=== PATIENT | female | born 1935 | race Caucasian/White ===

== ENCOUNTER 2018-02-17 12:16 | Emergency (ER) | payer MEDICARE, OTHER ==
--- NOTE | 2018-02-17 12:43 | ER Document Report ---
ED Medical Screen (RME) - General Chief Complaint: Chest Pressure Stated Complaint: ABNORMAL EKG Time Seen by Provider: 02/17/18 12:40 Mode of Arrival: Ambulatory Information source: Patient Notes: 82-year-old female no previous medical history does not take any medications except for intermittent baby aspirin presents with palpitations. Patient denies any actual chest pain feels like there is intermittent earthquakes in her chest felt her heart was racing today went to primary care physician EKG was performed PVC noted patient sent in for evaluation I have greeted and performed a rapid initial assessment of this patient. A comprehensive ED assessment and evaluation of the patient, analysis of test results and completion of the medical decision making process will be conducted by additional ED providers. PHYSICAL EXAMINATION: GENERAL: Well-appearing, well-nourished and in no acute distress. HEAD: Atraumatic, normocephalic. EYES: Pupils equal round extraocular movements intact, conjunctiva are normal. ENT: Nares patent NECK: Normal range of motion LUNGS: No respiratory distress Musculoskeletal: Normal range of motion NEUROLOGICAL: Normal speech, normal gait. PSYCH: Normal mood, normal affect. SKIN: Warm, Dry, normal turgor, no rashes or lesions noted. TRAVEL OUTSIDE OF THE [place] IN LAST 30 DAYS: No - Related Data Allergies/Adverse Reactions: Antihistamines - Alkylamine Allergy (Verified 02/17/18 12:17) Antihistamines - Ethanolamine Allergy (Verified 02/17/18 12:17) Antihistamines - Ethylenediamine Allergy (Verified 02/17/18 12:17) Antihistamines - Piperazine Allergy (Verified 02/17/18 12:17) Antihistamines - Piperidine Allergy (Verified 02/17/18 12:17) Penicillins Allergy (Verified 02/17/18 12:17) Past Medical History - Social History Chew tobacco use (# tins/day): No Frequency of alcohol use: None Drug Abuse: None Renal/ Medical History: Denies: Hx Peritoneal Dialysis Past Surgical History: Reports: Hx Appendectomy, Hx Tonsillectomy Physical Exam - Vital signs Vitals: Temp Pulse Resp BP Pulse Ox 98.3 F 84 16 159/79 H 97 02/17/18 12:26 02/17/18 12:26 02/17/18 12:26 02/17/18 12:26 02/17/18 12:26 Course - Vital Signs Vital signs: Temp Pulse Resp BP Pulse Ox 98.3 F 84 16 159/79 H 97 02/17/18 12:26 02/17/18 12:26 02/17/18 12:26 02/17/18 12:26 02/17/18 12:26
[2018-02-17 13:14] LABS: ABSOLUTE BASOPHILS # (AUTO) 0.1 10^3/uL (0.0-0.2); ABSOLUTE LYMPHOCYTES (AUTO) 1.1 10^3/uL (0.5-4.7); ABSOLUTE MONOCYTES (AUTO) 0.7 10^3/uL (0.1-1.4); ABSOLUTE NEUT (AUTO) 4.8 10^3/uL (1.7-8.2); BASOPHILS % (AUTO) 0.8 % (0-2); EOSINOPHILS % (AUTO) 0.6 % (0-6); HEMATOCRIT 35.7 % (36.0-47.0); HEMOGLOBIN 11.8 g/dL (12.0-15.5); LYMPHOCYTES % (AUTO) 16.8 % (13-45); MEAN CORPUSCULAR HEMOGLOBIN 31.6 pg (27.0-33.4); MEAN CORPUSCULAR HGB CONC 33.1 g/dL (32.0-36.0); MEAN CORPUSCULAR VOLUME 96 fl (80-97); MONOCYTES % (AUTO) 10.4 % (3-13); PLATELET COUNT 227 10^3/uL (150-450); RED BLOOD COUNT 3.74 10^6/uL (3.72-5.28); RED CELL DISTRIBUTION WIDTH 13.3 % (11.5-14.0); SEGMENTED NEUTROPHILS % (AUTO) 71.4 % (42-78); TOTAL CELLS COUNTED % (AUTO) 100 %; WHITE BLOOD COUNT 6.8 10^3/uL (4.0-10.5)
[2018-02-17 13:36] LABS: ALANINE AMINOTRANSFERASE 25 U/L (9-52); ALBUMIN 4.6 g/dL (3.5-5.0); ALKALINE PHOSPHATASE 84 U/L (38-126); ANION GAP 15 (5-19); ASPARTATE AMINO TRANSFERASE 31 U/L (14-36); BILIRUBIN,DIRECT 0.3 mg/dL (0.0-0.4); BILIRUBIN,TOTAL 0.3 mg/dL (0.2-1.3); BLOOD UREA NITROGEN 21 mg/dL (7-20); CALCIUM 10.1 mg/dL (8.4-10.2); CARBON DIOXIDE 23 mmol/L (22-30); CHLORIDE 107 mmol/L (98-107); CREATINE KINASE 102 U/L (30-135); GLUCOSE 105 mg/dL (75-110); SODIUM 144.8 mmol/L (137-145)
--- NOTE | 2018-02-17 13:42 | ER Document Report ---
ED Cardiac - General Chief Complaint: Chest Pressure Stated Complaint: ABNORMAL EKG Time Seen by Provider: 02/17/18 12:40 Mode of Arrival: Ambulatory Information source: Patient, Transfer Record TRAVEL OUTSIDE OF THE [place] IN LAST 30 DAYS: No - HPI Patient complains to provider of: Palpitations Use of: denies: Alcohol, Amphetamines, Bath salts, Caffeine, Cocaine, Decongestants Is the pain a: New problem Chest pain location: Substernal Quality of pain: Heaviness - SLIGHT, VERY VAGUE Severity now: None Severity at worst: Mild Chest pain precipitating factors: At Rest - LAST NIGHT Cardiac risk factors: None Positive cardiac history: No Associated symptoms: None Exacerbated by: Emotional stress Relieved by: Nothing Similar symptoms previously: Yes - RARE, VERY SHORT DURATION Recently seen / treated by doctor: Yes - PCP, THIS A.M., REFERRED TO E.D. - Related Data Allergies/Adverse Reactions: Antihistamines - Alkylamine Allergy (Verified 02/17/18 12:17) Antihistamines - Ethanolamine Allergy (Verified 02/17/18 12:17) Antihistamines - Ethylenediamine Allergy (Verified 02/17/18 12:17) Antihistamines - Piperazine Allergy (Verified 02/17/18 12:17) Antihistamines - Piperidine Allergy (Verified 02/17/18 12:17) Penicillins Allergy (Verified 02/17/18 12:17) Past Medical History - General Information source: Patient - Social History Smoking Status: Never Smoker Chew tobacco use (# tins/day): No Frequency of alcohol use: None Drug Abuse: None Family History: Reviewed & Not Pertinent Patient has suicidal ideation: No Patient has homicidal ideation: No - Past Medical History Cardiac Medical History: Reports: None Pulmonary Medical History: Reports: None EENT Medical History: Reports: None Neurological Medical History: Reports: None Endocrine Medical History: Reports: None Renal/ Medical History: Reports: None. Denies: Hx Peritoneal Dialysis Malignancy Medical History: Reports: None GI Medical History: Reports: None Musculoskeltal Medical History: Reports None Skin Medical History: Reports None Psychiatric Medical History: Reports: None Past Surgical History: Reports: Hx Appendectomy, Hx Tonsillectomy Review of Systems - Review of Systems Constitutional: No symptoms reported EENT: No symptoms reported Cardiovascular: See HPI Respiratory: No symptoms reported Gastrointestinal: No symptoms reported Genitourinary: No symptoms reported Female Genitourinary: Post menopausal Musculoskeletal: No symptoms reported Skin: No symptoms reported Neurological/Psychological: No symptoms reported Physical Exam - Vital signs Vitals: Temp Pulse Resp BP Pulse Ox 98.3 F 84 16 159/79 H 97 02/17/18 12:26 02/17/18 12:26 02/17/18 12:26 02/17/18 12:26 02/17/18 12:26 Course - Vital Signs Vital signs: Temp Pulse Resp BP Pulse Ox 98.3 F 84 16 159/79 H 97 02/17/18 12:26 02/17/18 12:26 02/17/18 12:26 02/17/18 12:26 02/17/18 12:26 - Laboratory Result Diagrams: 02/17/18 13:00 02/17/18 13:00 Laboratory results interpreted by me: 02/17/18 02/17/18 02/17/18 13:00 13:00 13:00 Hgb 11.8 L Hct 35.7 L BUN 21 H TSH 6.07 H Urine Blood 02/17/18 14:49 Hgb Hct BUN TSH Urine Blood MODERATE H - Diagnostic Test Radiology reviewed: Image reviewed, Reports reviewed - EKG Interpretation by Me EKG shows normal: Sinus rhythm, [place], Intervals, QRS Complexes, ST-T Waves Rate: Normal Rhythm: NSR. No: PVC's, APC's - Consults DR. JHAVERI Time consulted: 17:22 Consulted provider: follow-up in office Discharge - Discharge Clinical Impression: Palpitations Condition: Stable Disposition: HOME, SELF-CARE Instructions: Palpitations (Irregular or Rapid Heartrate) ([facility]) Additional Instructions: REST, AVOID STRESS MUCH POSSIBLE. AVOID ALL STIMULANTS, INCLUDING CAFFEINE, NICOTINE, AND DECONGESTANTS. FOLLOW UP WITH DR. JHAVERI, CALL HIM ON HIS CELL PHONE ([phone]) TUESDAY TO SCHEDULE APPOINTMENT. RETURN TO E.R. IF ANY NEW, WORSENING, OR PROLONGED SYMPTOMS. Referrals: JOSE MAYA MD [ACTIVE STAFF] - Follow up in 3-5 days
[2018-02-17 13:51] LABS: TROPONIN I < 0.012 ng/mL
--- NOTE | 2018-02-17 14:46 | RADIOLOGY REPORT (SQ) ---
EXAM DESCRIPTION: CHEST 2 VIEWS COMPLETED DATE/TIME: 02/17/2018 2:36 pm REASON FOR STUDY: PALPITATIONS COMPARISON: None. EXAM PARAMETERS: NUMBER OF VIEWS: two views TECHNIQUE: Digital Frontal and Lateral radiographic views of the chest acquired. RADIATION DOSE: NA LIMITATIONS: none FINDINGS: LUNGS AND PLEURA: No opacities, masses or pneumothorax. No pleural effusion. MEDIASTINUM AND HILAR STRUCTURES: No masses or contour abnormalities. HEART AND VASCULAR STRUCTURES: Heart normal size. No evidence for failure. BONES: No acute findings. Osteopenic HARDWARE: None in the chest. OTHER: No other significant finding. IMPRESSION: NO ACUTE RADIOGRAPHIC FINDING IN THE CHEST. TECHNICAL DOCUMENTATION: JOB ID: [id number] [employer]- All Rights Reserved Reading location - IP/workstation name: [email or web address]
[2018-02-17 15:24] LABS: APPEARANCE,URINE CLEAR; BILIRUBIN,URINE NEGATIVE (NEGATIVE); COLOR,URINE STRAW; GLUCOSE, URINE NEGATIVE (NEGATIVE); KETONES,URINE NEGATIVE (NEGATIVE); LEUKOCYTE ESTERASE,URINE NEGATIVE (NEGATIVE); NITRITE,URINE NEGATIVE (NEGATIVE); PROTEIN,URINE NEGATIVE (NEGATIVE); URINE SPECIFIC GRAVITY 1.006; UROBILINOGEN,URINE NEGATIVE mg/dL (<2.0)
[2018-02-17 16:10] LABS: FREE T3 3.62 pg/mL (2.77-5.27); FREE T4 (FREE THYROXINE) 1.05 ng/dL (0.78-2.19)
[2018-02-17 17:37] VITALS: BP 123/77
--- NOTE | 2018-02-17 20:51 | EKG REPORT ---
SEVERITY:- NORMAL ECG - SINUS RHYTHM : Confirmed by: Torsten Sebastian 17-Feb-2018 20:51:13
== END 2018-02-17 17:45 | disposition home or self-care (01) ==
LOC: ER 12:16
DX: R00.2 Palpitations (principal); R07.9 Chest pain, unspecified; R94.31 Abnormal electrocardiogram [ECG] [EKG]
CPT/HCPCS: 36415; 71046; 80053; 81001; 82550; 82553; 84439; 84443; 84481; 84484; 85025; 93005; 93010; 99285

== ENCOUNTER → 2018-03-07 | Outpatient (CLI) | payer MEDICARE, OTHER | LOC: OD 12:41 | PROVIDERS: ATTEND Specialist | DX: E78.5 Hyperlipidemia, unspecified (principal); R00.2 Palpitations; R01.1 Cardiac murmur, unspecified; R07.9 Chest pain, unspecified; Z79.899 Other long term (current) drug therapy | CPT/HCPCS: 36415; 84443 ==

== ENCOUNTER 2020-05-22 20:13 | Emergency (ER) | payer MEDICARE, OTHER ==
[2020-05-22 21:09] LABS: ABSOLUTE LYMPHOCYTES (AUTO) 1.1 10^3/uL (0.5-4.7); ABSOLUTE MONOCYTES (AUTO) 0.5 10^3/uL (0.1-1.4); ABSOLUTE NEUT (AUTO) 3.8 10^3/uL (1.7-8.2); BASOPHILS % (AUTO) 0.5 % (0-2); EOSINOPHILS % (AUTO) 0.3 % (0-6); HEMOGLOBIN 10.4 g/dL (12.0-15.5); LYMPHOCYTES % (AUTO) 20.5 % (13-45); MEAN CORPUSCULAR HEMOGLOBIN 32.3 pg (27.0-33.4); MEAN CORPUSCULAR HGB CONC 33.4 g/dL (32.0-36.0); MEAN CORPUSCULAR VOLUME 97 fl (80-97); MONOCYTES % (AUTO) 9.4 % (3-13); PLATELET COUNT 183 10^3/uL (150-450); RED CELL DISTRIBUTION WIDTH 13.1 % (11.5-14.0); SEGMENTED NEUTROPHILS % (AUTO) 69.3 % (42-78); TOTAL CELLS COUNTED % (AUTO) 100 %; WHITE BLOOD COUNT 5.5 10^3/uL (4.0-10.5)
[2020-05-22 21:14] LABS: ALBUMIN 3.9 g/dL (3.5-5.0); ALKALINE PHOSPHATASE 68 U/L (38-126); ANION GAP 9 (5-19); ASPARTATE AMINO TRANSFERASE 28 U/L (14-36); BILIRUBIN,DIRECT 0.3 mg/dL (0.0-0.4); BILIRUBIN,TOTAL 0.6 mg/dL (0.2-1.3); BLOOD UREA NITROGEN 22 mg/dL (7-20); CALCIUM 9.4 mg/dL (8.4-10.2); CARBON DIOXIDE 24 mmol/L (22-30); CHLORIDE 99 mmol/L (98-107); GLUCOSE 125 mg/dL (75-110); POTASSIUM 3.9 mmol/L (3.6-5.0); TOTAL PROTEIN 7.3 g/dL (6.3-8.2)
[2020-05-22] MEDS ORDERED: ONDANSETRON HCL INJ/PF 4 MG/2 ML SDV IV ONE (21:37)
[2020-05-22] MEDS ORDERED: ACETAMINOPHEN 325 MG TABLET PO ONE (21:37)
[2020-05-22] MEDS ORDERED: NORMAL SALINE 1000 ML 1,000 ML IV ONE (21:37)
[2020-05-22 21:40] LABS: APPEARANCE,URINE CLEAR; BILIRUBIN,URINE NEGATIVE (NEGATIVE); COLOR,URINE STRAW; GLUCOSE, URINE NEGATIVE (NEGATIVE); KETONES,URINE NEGATIVE (NEGATIVE); LEUKOCYTE ESTERASE,URINE MODERATE (NEGATIVE); NITRITE,URINE NEGATIVE (NEGATIVE); PROTEIN,URINE NEGATIVE (NEGATIVE); URINE SPECIFIC GRAVITY 1.008; UROBILINOGEN,URINE NEGATIVE mg/dL (<2.0)
--- NOTE | 2020-05-22 21:47 | ER Document Report ---
ED General - General Chief Complaint: Heat Exposure Stated Complaint: HEADACHE,NAUSEA Time Seen by Provider: 05/22/20 21:15 Notes: Patient is an 84-year-old female that comes to the emergency department for chief complaint of generalized weakness, nausea, headache, possible heat exposure. Patient states that she was told this morning that she had mold in her house, she states the team came and was "spraying the place", she states that she is very sensitive to these kind of chemicals and they make her feel terrible so she spent the day in her van because she felt she could not go into the house. Patient states she called her son, told him she didn't feel well, he advised her to come to the ED, she came by EMS. Patient denies chest pain, vomiting, fever, and she was able to urinate after arrival to the emergency department. Patient denies a history of asthma or a smoking history. Patient states she takes no daily medications, only past medical hearted medical history is GERD, appendectomy, tonsillectomy. TRAVEL OUTSIDE OF THE [place] IN LAST 30 DAYS: No - Related Data Allergies/Adverse Reactions: Antihistamines - Alkylamine Allergy (Verified 02/17/18 12:17) Antihistamines - Ethanolamine Allergy (Verified 02/17/18 12:17) Antihistamines - Ethylenediamine Allergy (Verified 02/17/18 12:17) Antihistamines - Piperazine Allergy (Verified 02/17/18 12:17) Antihistamines - Piperidine Allergy (Verified 02/17/18 12:17) Penicillins Allergy (Verified 02/17/18 12:17) Past Medical History - General Information source: Patient - Social History Smoking Status: Never Smoker Chew tobacco use (# tins/day): No Frequency of alcohol use: None Drug Abuse: None Lives with: Alone Family History: Reviewed & Not Pertinent Patient has homicidal ideation: No Renal/ Medical History: Denies: Hx Peritoneal Dialysis GI Medical History: Reports: Hx Gastroesophageal Reflux Disease Past Surgical History: Reports: Hx Appendectomy, Hx Tonsillectomy - Immunizations Hx Diphtheria, Pertussis, Tetanus Vaccination: Yes Review of Systems - Review of Systems Constitutional: See HPI EENT: No symptoms reported Cardiovascular: No symptoms reported Respiratory: No symptoms reported Gastrointestinal: No symptoms reported Genitourinary: No symptoms reported Female Genitourinary: No symptoms reported Musculoskeletal: No symptoms reported Skin: No symptoms reported Hematologic/Lymphatic: No symptoms reported Neurological/Psychological: See HPI Physical Exam - Vital signs Vitals: Temp Pulse Resp BP Pulse Ox 98.0 F 67 20 128/76 H 99 05/22/20 20:13 05/22/20 20:13 05/22/20 20:13 05/22/20 20:13 05/22/20 20:13 - Notes Notes: GENERAL: Alert, interacts well. No acute distress. HEAD: Normocephalic, atraumatic. EYES: Pupils equal, round, and reactive to light. Extraocular movements intact. ENT: Oral mucosa dry, tongue midline. Oropharynx unremarkable. Airway patent. NECK: Full range of motion. Supple. Trachea midline. No lymphadenopathy. LUNGS: Clear to auscultation bilaterally, no wheezes, rales, or rhonchi. No respiratory distress. Non-tender chest wall. HEART: Regular rate and rhythm. No murmur ABDOMEN: Soft, non-tender. Non-distended. EXTREMITIES: Moves all 4 extremities spontaneously. No edema, normal radial and dorsalis pedis pulses bilaterally. No cyanosis. BACK: no cervical, thoracic, lumbar midline tenderness. No saddle anesthesia, n ormal distal neurovascular exam. Moves all extremities in full range of motion. NEUROLOGICAL: Alert and oriented x3. Normal speech. Cranial nerves II through XII grossly intact. Strength 5/5 in all extremities. PSYCH: Normal affect, normal mood. SKIN: Warm, dry, normal turgor. No rashes or lesions noted. Course - Re-evaluation Re-evalutation: On my evaluation patient is alert, cooperative, she does not have any neurological deficits, she states she just feels generally weak, generally bad, and she is starting to get a headache. She states the headache as her classic headache, she states she always gets it on her left neck and then radiating up her head feeling like a tension headache. She denies vomiting but does report nausea. Her remaining physical exam and evaluation are unremarkable except for very dry mucous membranes. Patient was given IV fluids. CBC, chemistry, troponin unremarkable. Urinalysis with some leukocyte esterase and white blood cells but otherwise unremarkable. Patient was able to urinate on her own. CT of the head was performed because of her headache and nausea although this was unremarkable. Because of the lack of neurological deficits, headache that resolved with treatment, and negative CT of the head I have a very low suspicion of acute CVA. Chest x-ray unremarkable. On reevaluation patient states she feels significantly improved, she is requesting to eat and to be discharged. Patient states she will try her house, if the chemicals are still too strong she will either stay with her neighbor or have her son come from [place] to pick her up. Patient will be covered for UTI with Keflex, culture pending. Discussed return precautions. Patient states appreciation and agre ement. Stable, astigmatic, well-appearing at time of discharge. - Vital Signs Vital signs: Temp Pulse Resp BP Pulse Ox 98.2 F 67 16 108/57 L 99 05/22/20 20:13 05/22/20 20:13 05/23/20 03:01 05/23/20 05:06 05/22/20 20:13 - Laboratory Result Diagrams: 05/22/20 20:19 05/22/20 20:19 Laboratory results interpreted by me: 05/22/20 05/22/20 05/22/20 20:19 20:19 21:09 RBC 3.20 L Hgb 10.4 L Hct 31.0 L Sodium 131.5 L BUN 22 H Est GFR (MDRD) Non-Af 59 L Glucose 125 H Creatine Kinase Urine Blood SMALL H Ur Leukocyte Esterase MODERATE H Urine Ascorbic Acid 20 H 05/22/20 21:36 RBC Hgb Hct Sodium BUN Est GFR (MDRD) Non-Af Glucose Creatine Kinase 166 H Urine Blood Ur Leukocyte Esterase Urine Ascorbic Acid - EKG Interpretation by Me Additional EKG results interpreted by me: EKG shows sinus rhythm at a rate of 70, QTc 462, normal axis, no T wave inversions or ST segment changes in consecutive leads. There is some artifact present. Discharge - Discharge Clinical Impression: Weakness Headache Qualifiers: Headache type: unspecified Headache chronicity pattern: acute headache Intractability: not intractable Qualified Code(s): R51 - Headache Condition: Stable Disposition: HOME, SELF-CARE Additional Instructions: You have been treated for dehydration and you are being treated for a developing urinary tract infection. Your remaining work-up is reassuring. Take the Keflex antibiotics as prescribed to completion. Follow-up with primary care in the next 2 days for additional management. Return if you worsen including chest pain, return/worsening weakness, severe headache, vomiting, fever, or any other concerning symptoms. Prescriptions: Cephalexin Monohydrate [Keflex 500 mg Capsule] 500 mg PO BID 5 Days #10 capsule
--- NOTE | 2020-05-22 22:43 | RADIOLOGY REPORT (SQ) ---
EXAM DESCRIPTION: XR CHEST 1 VIEW COMPLETED DATE/TME: 05/22/2020 21:36 CLINICAL HISTORY: 84 years, Female, weakness COMPARISON: 02/17/2018 chest NUMBER OF VIEWS: 1 TECHNIQUE: Portable chest LIMITATIONS: None. FINDINGS: The heart size is normal. Lungs are clear. No pneumothorax. Underlying COPD IMPRESSION: No acute cardiopulmonary process. COPD. copyright 2010 [employer]- All Rights Reserved
[2020-05-22] MEDS ORDERED: MORPHINE SULFATE 10 MG/ML INJ IV ONE (23:30)
[2020-05-23] MEDS ORDERED: MORPHINE SULFATE 10 MG/ML INJ IV ONE (05:38)
[2020-05-23] MEDS ORDERED: ONDANSETRON HCL INJ/PF 4 MG/2 ML SDV IV ONE (05:38)
[2020-05-23] MEDS ORDERED: CEPHALEXIN 500 MG CAPSULE PO ONE (05:39)
[2020-05-23 10:42] VITALS: BP 118/60
--- NOTE | 2020-05-23 15:12 | EKG REPORT ---
SEVERITY:- BORDERLINE ECG - SINUS RHYTHM NO ACUTE CHANGE : Confirmed by: Nikita Bell MD 23-May-2020 15:11:46
--- NOTE | 2020-05-24 15:08 | RADIOLOGY REPORT (SQ) ---
EXAM DESCRIPTION: CT HEAD WITHOUT IMAGES COMPLETED DATE/TIME: 05/23/2020 5:18 am REASON FOR STUDY: acute headache, nausea COMPARISON: None. TECHNIQUE: Axial images acquired through the brain without intravenous contrast. Images reviewed wi th bone, brain and subdural windows. Additional sagittal and coronal reconstructions were generated. Images stored on PACS. All CT scanners at this facility use dose modulation, iterative reconstruction, and/or weight based d osing when appropriate to reduce radiation dose to as low as reasonably achievable (ALARA). [facility]: Dose Right [facility]: CareDose [facility]: Dose Right [facility]: Teradose 4D [facility]: [employer] Power RADIATION DOSE: mGy. LIMITATIONS: None. FINDINGS: VENTRICLES: Prominent. CEREBRUM: No masses. No hemorrhage. No midline shift. Areas of low density in the white matter mos t likely due to chronic micro-vascular ischemic change. No evidence for acute infarction. CEREBELLUM: No masses. No hemorrhage. No alteration of density. No evidence for acute infarction. EXTRAAXIAL SPACES: Mild age-related involutional change. No fluid collections. No masses. ORBITS AND GLOBE: No intra- or extraconal masses. Normal contour of globe without masses. CALVARIUM: No fracture. PARANASAL SINUSES: No fluid or mucosal thickening. SOFT TISSUES: No mass or hematoma. OTHER: No other significant finding. IMPRESSION: MILD CHRONIC CHANGES OF ATROPHY AND MICROVASCULAR ISCHEMIA. NO ACUTE PROCESS. EVIDENCE OF ACUTE STROKE: NO. TECHNICAL DOCUMENTATION: JOB ID: [id number] Quality ID # [id number]: Final reports with documentation of one or more dose reduction techniques (e.g., Au tomated exposure control, adjustment of the mA and/or kV according to patient size, use of iterative reconstruction technique) 2010 [employer]- All Rights Reserved Reading location - IP/workstation name: [email or web address]
== END 2020-05-23 10:54 | disposition home or self-care (01) ==
LOC: ER 20:13
DX: R51 Headache (principal); R53.1 Weakness; R11.0 Nausea; X30.XXXA Exposure to excessive natural heat, initial encounter; Z88.8 Allergy status to other drugs, medicaments and biological substances; Z88.0 Allergy status to penicillin
CPT/HCPCS: 93005; 96376; 99285; 96361; 96374; 96375; 36415; 82550; 85025; 80053; 81001; 84484; 71045; 70450; 93010; A9270 ×2; J2270; J2405 ×2; J7030